=== PATIENT | male | born 2000 | race American Indian/Alaskan Native ===

== ENCOUNTER 2020-11-30 12:54 | Emergency (ER) | payer OTHER ==
[2020-11-30] MEDS ORDERED: KETOROLAC 30 MG/1 ML INJ IV ONE (13:45)
[2020-11-30] MEDS ORDERED: SODIUM CHLORIDE 0.9% 500 ML 500 ML IV ONE (13:45)
--- NOTE | 2020-11-30 13:46 | Emergency Department Report ---
ED Abdominal Pain HPI - General Chief Complaint: Abdominal Pain Stated Complaint: ABD PAINS Time Seen by Provider: 11/30/20 13:22 Source: patient Mode of arrival: Ambulatory Limitations: No Limitations - History of Present Illness Initial Comments: 34 year old male with no significant past medical hx presents to ED with complaints of abdominal pain just below his umbilicus. patient states he has been this pain x 2 yrs and he has never had it checked out. He states he came in today because he is now concerned that it could be related to hernia. Patient that the pain has been intermittent for 2 years. He reports abdominal bloating especially when he eats. He denies any associated nausea or vomiting. He denies any UTI symptoms. He states that his bowel movements have been normal without any blood or mucus. He denies any fever. He denies any abdominal surgeries in the past. MD Complaint: abdominal pain -: year(s) (2) - Related Data Previous Rx's Medication Instructions Recorded Last Taken Type Acetaminophen/Codeine [Tylenol 1 tab PO Q6H PRN #12 tab 06/20/18 Unknown Rx /Codeine # 3 tab] Ibuprofen [Motrin] 600 mg PO Q8H PRN #20 tablet 06/20/18 Unknown Rx Allergies Allergy/AdvReac Type Severity Reaction Status Date / Time Penicillins Allergy Hives Verified 11/30/20 13:27 ED Review of Systems ROS: Stated complaint: ABD PAINS Other details as noted in HPI Comment: All other systems reviewed and negative Constitutional: denies: chills, fever Eyes: denies: eye pain, eye discharge, vision change ENT: denies: ear pain, throat pain, dental pain, hearing loss, epistaxis, congestion Respiratory: denies: cough, orthopnea, shortness of breath, SOB with exertion, SOB at rest, wheezing Cardiovascular: denies: chest pain, palpitations, dyspnea on exertion, edema, syncope, paroxysmal nocturnal dyspnea Gastrointestinal: abdominal pain. denies: nausea, diarrhea, constipation, hem atemesis, hematochezia Genitourinary: denies: urgency, dysuria, frequency, hematuria, discharge, testicular pain, testicular mass Musculoskeletal: denies: back pain, joint swelling, arthralgia Skin: denies: rash, lesions, change in color, change in hair/nails, pruritus Neurological: denies: headache, weakness, numbness, paresthesias, confusion, abnormal gait, vertigo Psychiatric: denies: anxiety, depression, auditory hallucinations, visual hallucinations, homicidal thoughts, suicidal thoughts Hematological/Lymphatic: denies: easy bleeding, easy bruising, swollen glands ED Past Medical Hx - Past Medical History Previous Medical History?: No - Social History Smoking Status: Never Smoker - Medications Home Medications: Home Medications Medication Instructions Recorded Confirmed Last Taken Type Acetaminophen/Codeine [Tylenol 1 tab PO Q6H PRN #12 tab 06/20/18 Unknown Rx /Codeine # 3 tab] Ibuprofen [Motrin] 600 mg PO Q8H PRN #20 tablet 06/20/18 Unknown Rx ED Physical Exam - General Limitations: No Limitations General appearance: alert, in no apparent distress - Head Head exam: Present: atraumatic, normocephalic, normal inspection - Eye Eye exam: Present: normal appearance, PERRL, EOMI Pupils: Present: normal accommodation - ENT ENT exam: Present: normal exam, mucous membranes moist - Neck Neck exam: Present: normal inspection, full ROM - Respiratory Respiratory exam: Present: normal lung sounds bilaterally. Absent: respiratory distress - Cardiovascular Cardiovascular Exam: Present: regular rate, normal rhythm, normal heart sounds - GI/Abdominal GI/Abdominal exam: Present: soft, tenderness (mild ttp RLQ. There is a small umbilical hernia which is reducible and mildly ttp. No rebound or guarding noted.). Absent: distended, guarding, rebound, rigid - Neurological Exam Neurological exam: Present: alert, oriented X3, CN II-XII intact, normal gait - Psychiatric Psychiatric exam: Present: normal affect, normal mood ED Course Vital Signs 11/30/20 11/30/20 11/30/20 13:29 15:10 17:00 Pulse Rate 80 76 81 Respiratory 16 16 16 Rate Blood Pressure 120/68 Blood Pressure 117/62 114/58 [Right] O2 Sat by Pulse 97 98 99 Oximetry ED Medical Decision Making - Lab Data Result diagrams: 11/30/20 14:31 11/30/20 14:14 - Radiology Data Radiology results: report reviewed Patient: JAVAN RESTREPO MR#: [id number] : 2000 Acct:[id number] Age/Sex: 20 / M ADM Date: 11/30/20 Loc: ED Attending Dr: Ordering Physician: MIRACLE MAN Date of Service: 11/30/20 Procedure(s): CT abdomen pelvis w con Accession Number(s): [id number] cc: MIRACLE MAN CT ABDOMEN AND PELVIS WITH CONTRAST INDICATION / CLINICAL INFORMATION: Periumbilical pain. TECHNIQUE: Axial CT images were obtained through the abdomen and pelvis after Omnipaque 300, [address] scans at this location are performed using CT dose reduction for ALARA by means of automated exposure control. COMPARISON: None available. FINDINGS: LOWER CHEST: No significant abnormality. LIVER: No significant abnormality. GALLBLADDER: No significant abnormality. BILE DUCTS: No significant abnormality. PANCREAS: No significant abnormality. SPLEEN: No significant abnormality. ADRENALS: No significant abnormality. RIGHT KIDNEY / URETER: No significant abnormality. LEFT KIDNEY / URETER: No significant abnormality. STOMACH / SMALL BOWEL: No significant abnormality. COLON: No significant abnormality. APPENDIX: No significant abnormality. PERITONEUM: No free fluid. No free air. No fluid collection. LYMPH NODES: No significant adenopathy. VASCULAR STRUCTURES: No significant abnormality. URINARY BLADDER: No significant abnormality. REPRODUCTIVE ORGANS: No significant abnormality. ADDITIONAL FINDINGS: None. SKELETAL SYSTEM: No significant abnormality. IMPRESSION: Negative for obstruction or localized inflammation. Signer Name: Tay Yung MD Signed: 11/30/2020 4:15 PM Workstation Name: [id number] Transcribed By: KIMBERLEY Dictated By: Tay Yung MD Electronically Authenticated By: Tay Yung MD Signed Date/Time: 11/30/201614 DD/ 10 TD/TT: - Medical Decision Making Patient currently resting in the room he does not appear to be in any acute distress. He does have a small umbilical hernia which is reducible on exam. He is not toxic or ill-appearing and appears hydrated. Labs reviewed and unremarkable. CT abdomen pelvis with IV contrast shows nothing acute. Discussed lab and imaging results with patient. Recommend follow-up with general surgeon as well as GI specialist if his symptoms continue. His vital signs are stable. Patient expressed understanding of instructions and agree with plan. Patient stable at time of discharge. Critical care attestation.: If time is entered above; I have spent that time in minutes in the direct care of this critically ill patient, excluding procedure time. ED Disposition Clinical Impression: Periumbilical abdominal pain, Umbilical hernia Disposition: TO HOME OR SELFCARE Is pt being admited?: No Does the pt Need Aspirin: No Condition: Stable Instructions: Umbilical Hernia, Adult, Abdominal Pain, Adult, [id number] Additional Instructions: I recommend that you take Tylenol and ibuprofen as needed for pain. Try to av oid any strenuous activities as this can worsen your hernia. It is important that you follow-up with general surgeon and a GI specialist in the next 1 to 2 weeks for further assessment and evaluation. Return to the ER if your symptoms changes or worsens in any way. Referrals: [facility] [Provider Group] - 7-10 days (Plumbing Foreman) DANILO EVANS MD [Staff Physician] - 7-10 days (Primary care physician) PEE CHAVARRIA MD [Staff Physician] - 3-5 Days (General surgeon) Forms: Work/School Release Form(ED) Time of Disposition: 16:25
[2020-11-30 14:56] LABS: Basophils % (Auto) 0.7 % (0.0-1.8); Eosinophils # (Auto) 0.1 K/mm3 (0.0-0.4); Eosinophils % (Auto) 2.3 % (0.0-4.3); Hemoglobin 13.9 gm/dl (11.8-15.2); Lymphocytes # (Auto) 1.8 K/mm3 (1.2-5.4); Lymphocytes % (Auto) 36.9 % (13.4-35.0); Mean Corpuscular HGB Conc 33 % (32-34); Mean Corpuscular Volume 84 fl (84-94); Monocytes # (Auto) 0.4 K/mm3 (0.0-0.8); Platelet Count 258 K/mm3 (140-440); Red Blood Count 4.98 M/mm3 (3.65-5.03); Red Cell Distribution Width 12.1 % (13.2-15.2)
[2020-11-30 15:24] LABS: Alanine Aminotransferase 24 units/L (7-56); Albumin 4.4 g/dL (3.9-5); BUN/Creatinine Ratio 11; Blood Urea Nitrogen 10 mg/dL (9-20); Calcium 9.7 mg/dL (8.4-10.2); Hemolysis Index 41
[2020-11-30 15:27] LABS: Bilirubin,Direct < 0.2 mg/dL (0-0.2)
[2020-11-30 15:30] LABS: Bilirubin,Urine NEG (Negative); Blood,Urine NEG (Negative); Color,Urine Yellow (Yellow); Mucus,Urine FEW /HPF; Protein,Urine <15 mg/dL mg/dL (Negative); RBC,Urine < 1.0 /HPF (0.0-6.0); Urobilinogen,Urine < 2.0 mg/dL (<2.0)
[2020-11-30 15:41] LABS: WBC,Urine < 1.0 /HPF (0.0-6.0)
--- NOTE | 2020-11-30 16:19 | Cat Scan Report ---
CT ABDOMEN AND PELVIS WITH CONTRAST INDICATION / CLINICAL INFORMATION: Periumbilical pain. TECHNIQUE: Axial CT images were obtained through the abdomen and pelvis after Omnipaque 300, 100 cc I V contrast. All CT scans at this location are performed using CT dose reduction for ALARA by means o f automated exposure control. COMPARISON: None available. FINDINGS: LOWER CHEST: No significant abnormality. LIVER: No significant abnormality. GALLBLADDER: No significant abnormality. BILE DUCTS: No significant abnormality. PANCREAS: No significant abnormality. SPLEEN: No significant abnormality. ADRENALS: No significant abnormality. RIGHT KIDNEY / URETER: No significant abnormality. LEFT KIDNEY / URETER: No significant abnormality. STOMACH / SMALL BOWEL: No significant abnormality. COLON: No significant abnormality. APPENDIX: No significant abnormality. PERITONEUM: No free fluid. No free air. No fluid collection. LYMPH NODES: No significant adenopathy. VASCULAR STRUCTURES: No significant abnormality. URINARY BLADDER: No significant abnormality. REPRODUCTIVE ORGANS: No significant abnormality. ADDITIONAL FINDINGS: None. SKELETAL SYSTEM: No significant abnormality. IMPRESSION: Negative for obstruction or localized inflammation. Signer Name: Tay Yung MD Signed: 11/30/2020 4:15 PM Workstation Name: [id number]
[2020-11-30 17:02] VITALS: BP 114/58
== END 2020-11-30 17:00 | disposition home or self-care (01) ==
LOC: EDBD → ED 12:54
DX: K42.9 Umbilical hernia without obstruction or gangrene (principal); R10.33 Periumbilical pain; Z88.0 Allergy status to penicillin; Z79.899 Other long term (current) drug therapy
CPT/HCPCS: 36415; 74177; 80048; 80076; 81001; 83690; 83735; 85025; 96361; 96374; 99284; J1885; J7040; Q9967

== ENCOUNTER 2020-11-30 17:58 | Emergency (ER) | payer BC | END 2020-11-30 18:20 | disposition home or self-care (01) | LOC: MERGE 17:58 → ED 17:58 | DX: R10.9 Unspecified abdominal pain (principal); Z53.21 Procedure and treatment not carried out due to patient leaving prior to being seen by health care provider ==

== ENCOUNTER 2020-12-17 06:13 | Day surgery (SDC) | payer BC, OTHER ==
[~2020-12-17 06:13] MED LIST: ACETAMINOPHEN 500 MG TAB PO SCH; BUPIVACAINE/PF (0.25%) 2.5 MG/ML 30 ML VIAL INFILTRATI ONE; CELECOXIB 200 MG CAP PO NR; GABAPENTIN 300 MG CAP PO NR; LACTATED RINGERS 1,000 ML IV SCH; LIDOCAINE 1%/EPINEPHRINE 1:100,000 VIAL (20 ML) INFILTRATI ONE; MIDAZOLAM 2 MG/2 ML INJ IV NR; SCOPOLAMINE TRANSDERMAL PATCH 72 HR TD NR; SODIUM CHLORIDE 0.9% IRR 1,500 ML BOTTLE IR ONE
[2020-12-17] MEDS ORDERED: LIDOCAINE 1%/EPINEPHRINE 1:100,000 VIAL (20 ML) INFILTRATI ONE ×2 (07:02→08:12)
[2020-12-17] MEDS ORDERED: BUPIVACAINE/PF (0.25%) 2.5 MG/ML 30 ML VIAL INFILTRATI ONE ×2 (07:02→08:12)
--- NOTE | 2020-12-17 07:05 | Anesthesia Consultation ---
Anesthesia Consult and Med Hx Date of service: 12/17/20 - Airway Anesthetic Teeth Evaluation: Good ROM Head & Neck: Adequate Mental/Hyoid Distance: Adequate Mallampati Class: Class II Intubation Access Assessment: Good - Pulmonary Exam CTA: Yes - Cardiac Exam Cardiac Exam: RRR - Pre-Operative Health Status ASA Pre-Surgery Classification: ASA1 Proposed Anesthetic Plan: General - Central Nervous System Hx Psychiatric Problems: No - Other Systems Hx Alcohol Use: Yes (Occas) Hx Cancer: No
--- NOTE | 2020-12-17 07:05 | Anesthesia Day of Surgery ---
Anesthesia Day of Surgery - Day of Surgery Patient Examined: Yes Patient H&P Reviewed: Yes Patient is NPO: Yes Beta Blockers: Yes
[2020-12-17] MEDS ORDERED: HYDROmorphone 1 MG/1 ML INJ ONE (07:16)
[2020-12-17] MEDS ORDERED: LIDOCAINE MPF (2%) 20 MG/1 ML VIAL 5 ML ONE (07:16)
[2020-12-17] MEDS ORDERED: propofoL 200 MG/20 ML VIAL IV ONE (07:16)
[2020-12-17] MEDS ORDERED: ROCURONIUM 50 MG/5 ML INJ IV ONE (07:17)
[2020-12-17] MEDS ORDERED: oxyCODONE /ACETAMINOPHEN 5-325MG TAB PO PRN (07:18)
[2020-12-17] MEDS ORDERED: HYDROmorphone 1 MG/1 ML INJ IV PRN (07:18)
[2020-12-17] MEDS ORDERED: ONDANSETRON 4 MG/2 ML INJ IV PRN (07:18)
[2020-12-17] MEDS ORDERED: SODIUM CHLORIDE 0.9% IRR 1,500 ML BOTTLE IR ONE (08:12)
[2020-12-17] MEDS ORDERED: NEOSTIGMINE 10MG/10 ML INJ MDV ONE (08:43)
[2020-12-17] MEDS ORDERED: KETOROLAC 30 MG/1 ML INJ ONE (08:44)
[2020-12-17] MEDS ORDERED: GLYCOPYRROLATE 0.4 MG/2 ML INJ ONE (08:44)
[2020-12-17] MEDS ORDERED: ONDANSETRON 4 MG/2 ML INJ ONE (08:44)
--- NOTE | 2020-12-17 09:06 | Discharge Summary ---
Providers - Providers Date of Admission: 12/17/2020 Date of discharge: 12/17/20 Attending physician: PEE CHAVARRIA MD Primary care physician: RIVET TESTER Hospitalization Reason for admission: umbilical hernia repair Condition: Good Procedures: open umbilical hernia repair Hospital course: Pt had an uneventful primary repair of umbilical hernia that was very small. He had an normal recovery in PACU and was discharged to home in stable condition. Disposition: DC-01 TO HOME OR SELFCARE Final Discharge Diagnosis (Prints w/discharge instructions): umbilical hernia Core Measure Documentation - Palliative Care Palliative Care/ Comfort Measures: Not Applicable - Core Measures Any of the following diagnoses?: none Exam - Physical Exam Narrative exam: unchanged from pre-op - Constitutional Vitals: Temp Pulse Resp BP Pulse Ox 97.8 F 73 16 128/79 96 12/17/20 06:25 12/17/20 06:25 12/17/20 06:25 12/17/20 06:25 12/17/20 06:25 Plan Activity: advance as tolerated Diet: regular, advance as tolerated Wound: open to air, keep clean and dry Special Instructions: no heavy lifting Additional Instructions: Pt can shower. No lifting more than 20lbs for 6 weeks. Follow up with: PRIMARY CARE, [Primary Care Provider] - 7 Days Forms: Outpatient Surgery DC Inst.
--- NOTE | 2020-12-17 09:13 | Operative Report ---
Operative Report Operative Report: Date: December 17, 2020 Surgeon: Mojgan Vizcaino MD [employer] Professor surgeon: Purnima Yates CSA MD Procedure performed: Open umbilical hernia repair Preop diagnosis: Umbilical hernia postop Postop diagnosis: Same as preop Anesthesia:GETA with local Indication for procedure: Patient is a 20-year-old male who presented to the emergency room for abdominal pain. Patient had a CT scan that was negative for any acute pathology. Upon physical examination there was noted to be a small umbilical hernia for which she was seen in the office for consultation. Patient signed informed consent for surgical repair of the umbilical hernia. Details of procedure: Patient brought into the OR suite laid in supine position. Bilateral lower extremity SCDs were placed. General anesthesia was induced via successful tracheal tube intubation. Patient abdomen was having draped in sterile fashion. Preoperative antibiotics were given before incision and a timeout was performed. An infraumbilical semicircular incision was made. Dissection was made down to the fascia. Using a hemostat the umbilical stalk was mobilized and surrounding tissue. It was then transected from the umbilical skin above. There was noted to be a less than 1 cm fascial defect at the base of the umbilicus. No preperitoneal fat was noted. There was no significant sac appreciated. At this time we decided due to the small nature of the hernia to do a primary repair. The subcutaneous fat was cleared to accentuates the borders of the fascial defect. Using 0 Prolene sutures interrupted sutures were used to close the fascial defect. The umbilical skin was then tacked down to the fascia using 2-0 Vicryl. A subcutaneous stitch was also placed to close the space. And the skin was closed with a running 4-0 Monocryl. Local anesthesia using 1% lidocaine with epi was used. The incision was covered with Dermabond. Patient was awoken, extubated and taken to recovery stable condition. All counts were correct. Specimen: None Complications: None immediate EBL: Minimal Findings: Less than 1 cm fascial defect at the base of the umbilicus
[2020-12-17 10:39] VITALS: BP 120/69
--- NOTE | 2020-12-17 10:48 | Post Anesthesia Evaluation ---
- Post Anesthesia Evaluation Patient Participated: Yes Airway Patent: Yes Stable Respiratory Function: Yes Nausea/Vomiting: No Temp > 96.8F: Yes Pain Manageable: Yes Adequeate Hydration: Yes Anesthesia Complications: No
== END 2020-12-17 10:15 | disposition home or self-care (01) ==
LOC: OR 06:13
PROVIDERS: ATTEND Surgery
DX: K42.9 Umbilical hernia without obstruction or gangrene (principal); K21.9 Gastro-esophageal reflux disease without esophagitis; Z20.822 Contact with and (suspected) exposure to COVID-19; Z88.0 Allergy status to penicillin; Z72.89 Other problems related to lifestyle
CPT/HCPCS: 49585; J1170; J1885; J1956; J2250; J2405; J2704; J2710; J7120; U0003